=== PATIENT | male | born 1955 ===

== ENCOUNTER 2018-11-17 08:48 | Emergency (ER) | payer OTHER ==
[2018-11-17 09:34] LABS: SQUAMOUS EPITHIAL 3 /hpf (0-5); URINE BILIRUBIN NEGATIVE (NEGATIVE); URINE BLOOD 3+ (NEGATIVE); URINE CLARITY Hazy (Clear); URINE COLOR Red (YELLOW); URINE GLUCOSE (UA) 2+ mg/dL (Normal); URINE LEUKOCYTE ESTERASE 2+ Leu/uL (Negative); URINE PROTEIN 2+ mg/dL (NEGATIVE); URINE UROBILINOGEN NORMAL mg/dL (0.2-1.0)
--- NOTE | 2018-11-17 09:43 | C.PDOC ---
Time Seen by Provider: 11/17/18 09:13 Chief Complaint (Nursing): Fever Past Medical History Vital Signs: Last Vital Signs Temp 98.6 F 11/17/18 08:57 Pulse 98 H 11/17/18 08:57 Resp 20 11/17/18 08:57 BP 128/86 11/17/18 08:57 Pulse Ox 99 11/17/18 08:57 - Medical History PMH: HTN, Hyperlipidemia Family History: States: Unknown Family Hx - Social History Hx Alcohol Use: Yes Hx Substance Use: No - Immunization History Hx Tetanus Toxoid Vaccination: No Hx Influenza Vaccination: No Hx Pneumococcal Vaccination: Yes ED Course And Treatment - Laboratory Results Lab Results: Urine Color Red (YELLOW) 11/17/18 09:20 Urine Clarity Hazy (Clear) 11/17/18 09:20 Urine pH 5.0 (5.0-8.0) 11/17/18 09:20 Ur Specific [place] 1.024 (1.003-1.030) 11/17/18 09:20 Urine Protein 2+ mg/dL (NEGATIVE) H 11/17/18 09:20 Urine Glucose (UA) 2+ mg/dL (Normal) H 11/17/18 09:20 Urine Ketones Negative mg/dL (NEGATIVE) 11/17/18 09:20 Urine Blood 3+ (NEGATIVE) H 11/17/18 09:20 Urine Nitrate Negative (NEGATIVE) 11/17/18 09:20 Urine Bilirubin Negative (NEGATIVE) 11/17/18 09:20 Urine Urobilinogen Normal mg/dL (0.2-1.0) 11/17/18 09:20 Ur Leukocyte Esterase 2+ Zev/uL (Negative) H 11/17/18 09:20 Urine WBC (Auto) 549 /hpf (0-5) H 11/17/18 09:20 Urine RBC (Auto) 3274 /hpf (0-3) H 11/17/18 09:20 Ur Squamous Epith Cells 3 /hpf (0-5) 11/17/18 09:20 O2 Sat by Pulse Oximetry: 99 Disposition - Disposition Forms: [employer] (Kinyarwanda)
[2018-11-17] MEDS ORDERED: Sodium Chloride 0.9% 1,000 ML IV ONE (09:47)
--- NOTE | 2018-11-17 09:57 | C.PDOC ---
History Of Present Illness 62 year old male with a PMHx of HTN presents to the ED for evaluation of subjective fever, chills, generalized body aches, and back pain for 3 days associated with blood in the urine that started today. The patient reports having prior similar symptoms. He also notes right sided neck pain. Denies SHx. Denies abdominal pain, sore throat, runny nose, nausea, vomiting, diarrhea, testicular pain/swelling, allergies to medication, kidney stones, and any other associated symptoms. Time Seen by Provider: 11/17/18 09:13 Chief Complaint (Nursing): Fever History Per: Patient History/Exam Limitations: no limitations Onset/Duration Of Symptoms: Days (x3) Current Symptoms Are (Timing): Still Present Recent travel outside of the [place]: No Past Medical History Reviewed: Historical Data, Nursing Documentation, Vital Signs Vital Signs: Last Vital Signs Temp 98.6 F 11/17/18 08:57 Pulse 98 H 11/17/18 08:57 Resp 20 11/17/18 08:57 BP 128/86 11/17/18 08:57 Pulse Ox 99 11/17/18 08:57 - Medical History PMH: HTN, Hyperlipidemia Family History: States: Unknown Family Hx - Social History Hx Alcohol Use: Yes Hx Substance Use: No - Immunization History Hx Tetanus Toxoid Vaccination: No Hx Influenza Vaccination: No Hx Pneumococcal Vaccination: Yes Review Of Systems Except As Marked, All Systems Reviewed And Found Negative. Constitutional: Positive for: Fever, Chills, Other (generalized bodyaches. ) Gastrointestinal: Negative for: Nausea, Vomiting, Abdominal Pain, Diarrhea Genitourinary: Negative for: Other ((-) testicular pain. (-) testicular swelling. ) Musculoskeletal: Positive for: Back Pain Physical Exam - Physical Exam Appears: Non-toxic, No Acute Distress Skin: Warm, Dry, No Rash Head: Atraumatic, Normacephalic Eye(s): bilateral: Normal Inspection Ear(s): Bilateral: Normal Oral Mucosa: Moist Throat: No Erythema, No Exudate Neck: Normal ROM, Supple Chest: Symmetrical Cardiovascular: Rhythm Regular, No Friction Rub, No Murmur Respiratory: Normal Breath Sounds, No Rales, No Rhonchi, No Wheezing Gastrointestinal/Abdominal: Normal Exam, Soft, No Tenderness, No Distention, No Guarding, No Rebound Back: No CVA Tenderness Extremity: Normal ROM (x4), No Swelling Neurological/Psych: Oriented x3, Normal Speech, Normal Cognition, Normal Motor Gait: Steady ED Course And Treatment - Laboratory Results Result Diagrams: 11/17/18 10:33 11/17/18 10:33 Lab Results: Urine Color Red (YELLOW) 11/17/18 09:20 Urine Clarity Hazy (Clear) 11/17/18 09:20 Urine pH 5.0 (5.0-8.0) 11/17/18 09:20 Ur Specific [place] 1.024 (1.003-1.030) 11/17/18 09:20 Urine Protein 2+ mg/dL (NEGATIVE) H 11/17/18 09:20 Urine Glucose (UA) 2+ mg/dL (Normal) H 11/17/18 09:20 Urine Ketones Negative mg/dL (NEGATIVE) 11/17/18 09:20 Urine Blood 3+ (NEGATIVE) H 11/17/18 09:20 Urine Nitrate Negative (NEGATIVE) 11/17/18 09:20 Urine Bilirubin Negative (NEGATIVE) 11/17/18 09:20 Urine Urobilinogen Normal mg/dL (0.2-1.0) 11/17/18 09:20 Ur Leukocyte Esterase 2+ Zev/uL (Negative) H 11/17/18 09:20 Urine WBC (Auto) 549 /hpf (0-5) H 11/17/18 09:20 Urine RBC (Auto) 3274 /hpf (0-3) H 11/17/18 09:20 Ur Squamous Epith Cells 3 /hpf (0-5) 11/17/18 09:20 O2 Sat by Pulse Oximetry: 99 (RA) Pulse Ox Interpretation: Normal Medical Decision Making Medical Decision Making: Initial plan: -Urine culture -Urinalysis Progress/Update: Labs viewed. Patient given Cipro and Tylenol. Re-evaluation: Results discussed with the patient. After antibiotics, patient notes (+) nausea and (+) chills (+) increased saliva production. (-) body itchiness. Progress/Update: Patient states feeling better, no fever. Chills and nausea resolved. Stable for discharge home. Prescribed Motrin and Cipro. Advised to return to the ED if symptoms worsen. Disposition - Disposition Referrals: [facility] [Outside] Adalberto Tavares MD [Staff Provider] - Disposition: HOME/ ROUTINE Disposition Time: 11:31 Condition: STABLE Additional Instructions: Follow up with the medical doctor/clinic within 1-2 days. Return if worsened. Prescriptions: Ciprofloxacin HCl [Cipro] 500 mg PO BID #19 tab Ibuprofen [Motrin] 1 tab PO TID PRN #30 tab PRN Reason: Pain Instructions: Kidney Infection, Urinary Tract Infection, Adult (DC) Forms: [employer] ([employer]) - Clinical Impression Clinical Impression: UTI (urinary tract infection) - PA / PEST LOCATOR / Resident Statement MD/DO has reviewed & agrees with the documentation as recorded. - Scribe Statement The provider has reviewed the documentation as recorded by the Scribe (Monie Yanez) All medical record entries made by the Scribe were at my direction and personally dictated by me. I have reviewed the chart and agree that the record accurately reflects my personal performance of the history, physical exam, medical decision making, and the department course for this patient. I have also personally directed, reviewed, and agree with the discharge instructions and disposition.
[2018-11-17 10:37] LABS: BASO % 0.2 % (0.0-2.0); EOS % 0.2 % (0.0-4.0); HEMOGLOBIN 15.4 g/dL (12.0-18.0); LYMPH # 1.3 K/uL (1.0-4.3); LYMPH % 8.8 % (20.0-40.0); MEAN CORPUSCULAR HEMOGLOBIN 32.3 pg (27.0-31.0); MEAN CORPUSCULAR HGB CONC 34.7 g/dL (33.0-37.0); MEAN PLATELET VOLUME 7.1 fL (7.2-11.7); MONO # 1.1 K/uL (0.0-0.8); MONO % 7.4 % (0.0-10.0); NEUT # 12.1 K/uL (1.8-7.0); NEUT % 83.4 % (50.0-75.0); PLATELET COUNT 175 K/uL (130-400); RBC 4.76 Mil/uL (4.40-5.90); RED CELL DISTRIBUTION WIDTH 13.7 % (11.5-14.5); WHITE BLOOD COUNT 14.5 K/uL (4.8-10.8)
[2018-11-17 10:55] LABS: ALB/GLOB RATIO 1.4 (1.0-2.1); ALBUMIN 4.1 g/dL (3.5-5.0); CALCIUM 8.7 mg/dl (8.6-10.4)
[2018-11-17 11:13] LABS: BANDS 4 % (0-2); LYMPHOCYTE 6 % (20-40); MONOCYTE 5 % (0-10); NEUTROPHIL 85 % (50-75); TOTAL CELLS COUNTED 100
[2018-11-17 11:14] LABS: ANISOCYTOSIS SLIGHT; LARGE PLATELETS PRESENT; PLATELET ESTIMATE NORMAL (NORMAL); TOXIC GRANULATION PRESENT
[2018-11-17] MEDS ORDERED: Ciprofloxacin 400mg/200ml D5W 400 MG/200 ML BAG IV STA (11:17)
[2018-11-17] MEDS ORDERED: Ciprofloxacin 400mg/200ml D5W 400 MG/200 ML BAG IVPB ONE (11:27)
[2018-11-17 13:48] VITALS: BP 118/72; PULSE 104; RESP 20; TEMP 100.5
[2018-11-17 15:53] VITALS: O2SAT 99
== END 2018-11-17 13:48 | disposition home or self-care (01) ==
LOC: C.ER 08:48
DX: N39.0 Urinary tract infection, site not specified (principal)
CPT/HCPCS: 80053; 81001; 85025; 87086; 96361; 96365; 96366; 99285; J0744; J7030

== ENCOUNTER 2018-11-19 08:44 | Emergency (ER) | payer OTHER ==
[2018-11-19 08:51] VITALS: O2SAT 100
--- NOTE | 2018-11-19 09:16 | C.PDOC ---
History Of Present Illness 62 y/o male presents to the ER complaining of difficulty urinating. Patient states that he " was able to only get little out.' However, he still feels like he has bladder fullness since 2 am.Patient reports that he was evaluated in the ER on 11/17/18. At the time, he was diagnosed with UTI and he was discharged with medications. Patient notes that he is compliant with the medications and his last dose was in the morning today. He states that his initial hematuria has not resolved. He reports that he has subjective fever.Denies having nausea,vomiting, abdominal pain, and known hx of prostate problems. SEEN 11/17 +UTI, DC ON CIPRO AND MOTRIN. UCX +E COLI, NO SENSITIVITY DONE PER REPORT. Time Seen by Provider: 11/19/18 08:56 Chief Complaint (Nursing): Male Genitourinary History Per: Patient History/Exam Limitations: no limitations Onset/Duration Of Symptoms: Days Current Symptoms Are (Timing): Still Present Severity: Moderate Past Medical History Reviewed: Historical Data, Nursing Documentation, Vital Signs Vital Signs: Last Vital Signs Temp 98.5 F 11/19/18 08:49 Pulse 85 11/19/18 08:49 Resp 16 11/19/18 08:49 BP 161/107 H 11/19/18 08:49 Pulse Ox 100 11/19/18 08:49 - Medical History PMH: HTN, Hyperlipidemia Surgical History: No Surg Hx Family History: States: No Known Family Hx - Social History Hx Alcohol Use: Yes Hx Substance Use: No - Immunization History Hx Tetanus Toxoid Vaccination: No Hx Influenza Vaccination: No Hx Pneumococcal Vaccination: Yes Review Of Systems Except As Marked, All Systems Reviewed And Found Negative. Constitutional: Positive for: Fever (subjective fever). Negative for: Chills Cardiovascular: Negative for: Chest Pain Respiratory: Negative for: Shortness of Breath Gastrointestinal: Negative for: Nausea, Vomiting, Abdominal Pain Genitourinary: Positive for: Dysuria, Hematuria Physical Exam - Physical Exam Appears: Non-toxic, No Acute Distress Skin: Normal Color, Warm, Dry Head: Atraumatic, Normacephalic Eye(s): bilateral: Normal Inspection Cardiovascular: Rhythm Regular Respiratory: Normal Breath Sounds, No Rales, No Rhonchi, No Wheezing Gastrointestinal/Abdominal: Soft, Tenderness (suprapubic tenderness), No Guarding, No Rebound Neurological/Psych: Oriented x3, Normal Speech ED Course And Treatment O2 Sat by Pulse Oximetry: 100 (RA) Pulse Ox Interpretation: Normal Progress - Data Reviewed Data Reviewed: Lab, Old records Medical Decision Making Medical Decision Making: Plan: --Bladder Scan --UA Disposition Counseled Patient/Family Regarding: Studies Performed, Diagnosis, Need For Followup - Disposition Referrals: Gaudencio Larios Jr., MD [Staff Provider] - Lisa Tavares MD [Staff Provider] - Disposition: HOME/ ROUTINE Disposition Time: 09:54 Condition: IMPROVED Prescriptions: Tamsulosin [Flomax] 0.4 mg PO DAILY #14 cap Instructions: How to Care for Your Price Catheter, Male, Urinary Retention (DC) Forms: [employer] (Armenian), Work Excuse - Clinical Impression Clinical Impression: Urinary retention - Scribe Statement The provider has reviewed the documentation as recorded by the Scribe Gita Olmedo Provider Attestation: All medical record entries made by the Scribe were at my direction and personally dictated by me. I have reviewed the chart and agree that the record accurately reflects my personal performance of the history, physical exam, medical decision making, and the department course for this patient. I have also personally directed, reviewed, and agree with the discharge instructions and disposition.
[2018-11-19 09:50] LABS: SQUAMOUS EPITHIAL 8 /hpf (0-5); URINE BACTERIA RARE (<OCC); URINE BILIRUBIN NEGATIVE (NEGATIVE); URINE BLOOD 1+ (NEGATIVE); URINE CLARITY Hazy (Clear); URINE COLOR Straw (YELLOW); URINE GLUCOSE (UA) NORMAL (Normal); URINE LEUKOCYTE ESTERASE 2+ Leu/uL (Negative); URINE PROTEIN NEGATIVE (NEGATIVE); URINE UROBILINOGEN NORMAL mg/dL (0.2-1.0)
[2018-11-19 10:46] VITALS: BP 145/89; PULSE 88; RESP 18; TEMP 98.7
== END 2018-11-19 10:53 | disposition home or self-care (01) ==
LOC: C.ER 08:44
DX: R33.9 Retention of urine, unspecified (principal)